=== PATIENT | male | born 1980 | race Caucasian/White ===

== ENCOUNTER 2017-01-10 21:17 | Emergency (ER) | payer SELFPAY ==
[~2017-01-10] VITALS: Ht 172.7 cm; Wt 118.1 kg
[2017-01-10 21:30] VITALS: TEMP 36.6; Ht 172.7 cm; Wt 118.1 kg
[2017-01-10] MEDS ORDERED: KETOROLAC TROMETHAMINE 30 MG/ML VIAL IV STA (22:05)
[2017-01-10] MEDS ORDERED: SODIUM CHLORIDE 0.9% 1000ML 1,000 ML IV ONE (22:15)
[2017-01-10 22:52] LABS: BASO % 0.5 %; BASO ABS # 0.05 K/uL (0-0.2); COMPLETE YES; HEMATOCRIT 44.2 % (42-52); IG% 0.4 %; LYMPH % 34.2 %; MEAN CELL VOLUME 83.1 fL (80-100); MEAN CORPUSCULAR HEMOGLOBIN 27.1 pg (25-34); MEAN CORPUSCULAR HGB CONC 32.6 g/dl (32-36); MEAN PLATELET VOLUME 8.6 fL (7.4-10.4); MONO % 9.8 %; NEUT % 54.1 %; PLATELET COUNT 317 K/uL (130-400); RED BLOOD COUNT 5.32 M/uL (4.7-6.1); WHITE BLOOD COUNT 10.83 K/uL (4.8-10.8)
--- NOTE | 2017-01-10 23:03 | DIAGNOSTIC IMAGING REPORT ---
LEFT FOOT MIN 3 VIEWS ROUTINE CLINICAL HISTORY: Left foot pain. COMPARISON: None FINDINGS: Tarsometatarsal joints are intact. There is possible soft tissue swelling of the left first toe. There is mild chronic deformity of the left foot. No definite acute fracture is identified. Lateral view demonstrates an equivocal avulsion injury of the left midfoot which is probably artifactual. IMPRESSION: 1. 6 mm apparent bone fragment along the dorsal aspect of the proximal metatarsals shown on lateral projection. This is likely artifactual although a small avulsion fracture could appear similar. 2. No definite acute fracture or dislocation of the left foot. 3. Apparent soft tissue swelling of the left first toe. 4. Mild chronic deformity of the left foot. Electronically signed by: Maury Recio M.D. 01/10/2017 11:01 PM Dictated Date/Time: 01/10/2017 10:56 PM
[2017-01-10 23:08] LABS: BUN/CREATININE RATIO 9.3 (10-20); CREATININE 1.1 mg/dl (0.60-1.40); POTASSIUM 3.6 mmol/L (3.5-5.1); URIC ACID 8.5 mg/dl (2.6-7.2)
[2017-01-10 23:41] LABS: LYME DISEASE AB IGG NEG (NEG)
[2017-01-10 23:42] LABS: LYME DISEASE AB IGM NEG (NEG)
[2017-01-11] MEDS ORDERED: DICL75TA2 PO (00:12)
[2017-01-11 00:24] VITALS: BP 122/76; PULSE 76; O2SAT 97
--- NOTE | 2017-01-11 00:48 | EMERGENCY ROOM VISIT NOTE ---
History First contact with patient: 21:58 Chief Complaint: FOOT PAIN Stated Complaint: POSSIBLE GOUT L FOOT History of Present Illness The patient is a 36 year old male who presents to the Emergency Room with complaints of severe left foot pain for the past 2-3 days. The patient believes that he may have gout, as he has had intermittent episodes of this over the past several years. He has tried indomethacin in the past, but states he is unable to take this medication as it upsets his stomach significantly. The patient does not recall distinct injury or trauma. No fevers or chills. He has never been tested for gout. He rates his current discomfort a 9/10 that worsens with palpation Review of Systems More than 10 systems were reviewed and otherwise negative with the exception of history of present illness. Past Medical/Surgical History No chronic medical disease Family History no pertinent family history Social History Smoking Status: Never Smoker Housing Status: lives with family Current/Historical Medications Scheduled Diclofenac Sodium (Voltaren), 75 MG PO BID Physical Exam Vital Signs Date Time Temp Pulse Resp B/P (MAP) Pulse Ox O2 Delivery O2 Flow Rate FiO2 01/11/17 00:24 76 16 122/76 97 01/10/17 21:30 36.6 90 18 167/109 99 Room Air Pain Rating (0-10): 0 Physical Exam VITALS: Vitals are noted on the nurse's note and reviewed by myself. Vital signs stable. GENERAL: Well-developed, well-nourished, white male, who is in no acute distress and resting comfortably. Patient is cooperative with the examination. HEAD: Normocephalic atraumatic. HEART: Regular rate and rhythm without murmurs gallops or rubs. LUNGS: Clear to auscultation bilaterally without wheezes, rales or rhonchi. No retractions or accessory muscle use. MUSCULOSKELETAL: Erythema and edema is appreciated over the left foot primarily over the superior lateral midfoot. There is tenderness of the first MTP joint. No lymphangitic streaking. No lesions of the skin NEURO: Patient was alert and oriented to person place and time. CN II through XII grossly intact. Medical Decision & Procedures ER Provider Diagnostic Interpretation: LEFT FOOT MIN 3 VIEWS ROUTINE CLINICAL HISTORY: Left foot pain. COMPARISON: None FINDINGS: Tarsometatarsal joints are intact. There is possible soft tissue swelling of the left first toe. There is mild chronic deformity of the left foot. No definite acute fracture is identified. Lateral view demonstrates an equivocal avulsion injury of the left midfoot which is probably artifactual. IMPRESSION: 1. 6 mm apparent bone fragment along the dorsal aspect of the proximal metatarsals shown on lateral projection. This is likely artifactual although a small avulsion fracture could appear similar. 2. No definite acute fracture or dislocation of the left foot. 3. Apparent soft tissue swelling of the left first toe. 4. Mild chronic deformity of the left foot. Laboratory Results 01/10/17 22:25 Red Blood Count 5.32, Mean Corpuscular Volume 83.1, Mean Corpuscular Hemoglobin 27.1, Mean Corpuscular Hemoglobin Concent 32.6, Mean Platelet Volume 8.6, Neutrophils (%) (Auto) 54.1, Lymphocytes (%) (Auto) 34.2, Monocytes (%) (Auto) 9.8, Eosinophils (%) (Auto) 1.0, Basophils (%) (Auto) 0.5, Neutrophils # (Auto) 5.87, Lymphocytes # (Auto) 3.70, Monocytes # (Auto) 1.06, Eosinophils # (Auto) 0.11, Basophils # (Auto) 0.05 01/10/17 22:25 Test 01/10/17 22:25 White Blood Count 10.83 K/uL (4.8-10.8) Red Blood Count 5.32 M/uL (4.7-6.1) Hemoglobin 14.4 g/dL (14.0-18.0) Hematocrit 44.2 % (42-52) Mean Corpuscular Volume 83.1 fL (80-100) Mean Corpuscular Hemoglobin 27.1 pg (25-34) Mean Corpuscular Hemoglobin Concent 32.6 g/dl (32-36) Platelet Count 317 K/uL (130-400) Mean Platelet Volume 8.6 fL (7.4-10.4) Neutrophils (%) (Auto) 54.1 % Lymphocytes (%) (Auto) 34.2 % Monocytes (%) (Auto) 9.8 % Eosinophils (%) (Auto) 1.0 % Basophils (%) (Auto) 0.5 % Neutrophils # (Auto) 5.87 K/uL (1.4-6.5) Lymphocytes # (Auto) 3.70 K/uL (1.2-3.4) Monocytes # (Auto) 1.06 K/uL (0.11-0.59) Eosinophils # (Auto) 0.11 K/uL (0-0.5) Basophils # (Auto) 0.05 K/uL (0-0.2) RDW Standard Deviation 38.2 fL (36.4-46.3) RDW Coefficient of Variation 12.7 % (11.5-14.5) Immature Granulocyte % (Auto) 0.4 % Immature Granulocyte # (Auto) 0.04 K/uL (0.00-0.02) Anion Gap 9.0 mmol/L (3-11) Est Creatinine Clear Calc Drug Dose 118.1 ml/min Estimated GFR () 101.0 Estimated GFR (Non- 87.1 BUN/Creatinine Ratio 9.3 (10-20) Uric Acid 8.5 mg/dl (2.6-7.2) Calcium Level 9.0 mg/dl (8.5-10.1) Total Bilirubin 0.7 mg/dl (0.2-1) Aspartate Amino Transf (AST/SGOT) 16 U/L (15-37) Alanine Aminotransferase (ALT/SGPT) 51 U/L (12-78) Alkaline Phosphatase 98 U/L (45-117) Total Protein 7.7 gm/dl (6.4-8.2) Albumin 3.9 gm/dl (3.4-5.0) Globulin 3.8 gm/dl (2.5-4.0) Albumin/Globulin Ratio 1.0 (0.9-2) Lyme Disease IgG Antibody NEG (NEG) Lyme Disease IgM Antibody NEG (NEG) Medications Administered Medications (Trade) Dose Ordered Sig/Andree Route Start Time Stop Time Status Last Admin Dose Admin Sodium Chloride 1,000 ml @ 999 mls/hr Q1H1M ONCE IV 01/10/17 22:15 01/10/17 23:15 DC 01/10/17 22:37 999 MLS/HR Ketorolac Tromethamine (Toradol Inj) 30 mg NOW STAT IV 01/10/17 22:05 01/10/17 22:06 DC 01/10/17 22:38 30 MG ED Course Physical exam and history were performed. Nursing notes and EMR were reviewed. Patient appears to have pain of his left foot for the past several days. He does have some swelling and tenderness over the midfoot as well as the first MTP. X-ray was obtained and does not show acute no acute process. IV access was established and labs were obtained. The patient was hydrated and medicated as above. The patient's blood work is as above and was reviewed. He does not have a significantly elevated white blood cell count, anemia, bandemia, or significant electrolyte imbalance. Has a negative Lyme screen, but his uric acid is positive. Clinically this does correlate with his symptoms and does suggest gout. I discussed options of care with the patient, and evidently he has not done well with Indocin in the past. I will start him on diclofenac and have him follow with his primary care physician for further care and management. He was otherwise invited back to the ER with any new, worsening, or concerning symptoms. He voiced understanding and rated his discomfort a 2/10 at the time of departure. The chart was completed utilizing [employer] Speech Voice Recognition Software. Grammatical errors, random word insertions, pronoun errors, and incomplete sentences are an occasional consequence of this system due to software limitations, ambient noise, and hardware issues. Any formal questions or concerns about the content, text, or information contained within the body of this dictation should be directly addressed to the provider for clarification. . Medical Decision Differential diagnosis includes, but is not limited to: Sprain, strain, fracture , dislocation, contusion, gout, Lyme, bone infection, and others Impression Primary Impression: Acute gout Departure Information Dispostion Home / Self-Care Condition GOOD Prescriptions Diclofenac Sodium (VOLTAREN) 75 Mg Tab 75 MG PO BID for 30 Days, #60 TAB Take with food Prov: Karthik Clemens PA-C 01/11/17 Forms HOME CARE DOCUMENTATION FORM, IMPORTANT VISIT INFORMATION Patient Instructions My [facility] Additional Instructions You were seen and evaluated today on an emergency basis only. This is not a substitute for, or an effort to provide, complete comprehensive medical care. It is not possible to recognize and treat all injuries or illnesses in a single emergency department visit. For this reason it is recommended that you followup with your primary care physician for ongoing care and evaluation. Take Voltaren 75 mg twice daily for the next 7 days. Take this with food. You are welcome to return to the emergency department anytime with new, worsening, or concerning symptoms. Problem Qualifiers Primary Impression: Acute gout Gout site: foot Gout etiology: unspecified cause Laterality: left Qualified Codes: M10.9 - Gout, unspecified
== END 2017-01-11 00:25 | disposition home or self-care (01) ==
LOC: C.EDB 21:19
DX: M10.9 Gout, unspecified (principal)